=== PATIENT | female | born 1990 | race Caucasian/White ===

== ENCOUNTER 2016-07-06 09:24 | Emergency (ER) | payer OTHER, MEDICAID ==
[~2016-07-06] VITALS: Ht 152.4 cm; Wt 49.0 kg
[2016-07-06 10:30] LABS: BASOPHIL % 0.2 % (0-2); PLATELET COUNT 217 x10^3mcL (130-400); RED CELL DISTRIBUTION WIDTH 12.2 % (11.5-14.5)
[2016-07-06 10:41] LABS: CALCIUM 8.5 mg/dL (8.5-10.1); CARBON DIOXIDE 26.6 mmol/L (21-32); CHLORIDE SERUM 104 mmol/L (98-107); CREATININE SERUM 0.7 mg/dL (0.6-1.0); GFR1 > 60 mL/min; GLUCOSE SERUM 89 mg/dL (74-106); POTASSIUM SERUM 3.5 mmol/L (3.5-5.1); SODIUM SERUM 141 mmol/L (136-145)
[2016-07-06 10:45] LABS: ALBUMIN 3.8 g/dL (3.4-5.0); ALKALINE PHOSPHATASE 57 U/L (46-116); ALT/SGPT 16 U/L (14-59); AMYLASE 84 U/L (25-115); AST/SGOT 10 U/L (15-37); BILIRUBIN TOTAL 0.7 mg/dL (0.20-1.00); LIPASE 375 IU/L (73-393); TOTAL PROTEIN, SERUM 7.2 g/dL (6.4-8.2)
[2016-07-06 12:56] VITALS: BP 130/76
== END 2016-07-06 12:56 | disposition home or self-care (01) ==
LOC: ED 09:24
PROVIDERS: Emergency Medicine
DX: R10.9 Unspecified abdominal pain (principal); E86.0 Dehydration; R11.10 Vomiting, unspecified; R19.7 Diarrhea, unspecified; G43.909 Migraine, unspecified, not intractable, without status migrainosus
CPT/HCPCS: 83880; 87046; 87046-59; J2405; J3490; J7030

== ENCOUNTER 2017-07-31 16:05 | Emergency (ER) | payer OTHER ==
[~2017-07-31] VITALS: Ht 152.4 cm; Wt 50.5 kg
[2017-07-31 16:19] VITALS: BP 113/63; Ht 152.4 cm; Wt 50.5 kg
== END 2017-07-31 18:37 | disposition home or self-care (01) ==
LOC: ED 16:05
DX: G43.909 Migraine, unspecified, not intractable, without status migrainosus (principal)
CPT/HCPCS: J0780; J1885; Q0163

== ENCOUNTER 2017-12-26 21:28 | Emergency (ER) | payer OTHER ==
[~2017-12-26] VITALS: Ht 152.4 cm; Wt 52.2 kg
[2017-12-26 21:57] VITALS: Ht 152.4 cm; Wt 52.2 kg
[2017-12-26 23:24] VITALS: BP 122/76
== END 2017-12-26 23:24 | disposition home or self-care (01) ==
LOC: ED 21:28
DX: J03.90 Acute tonsillitis, unspecified (principal); G43.909 Migraine, unspecified, not intractable, without status migrainosus
CPT/HCPCS: J0696

== ENCOUNTER 2018-05-01 17:37 | Emergency (ER) | payer OTHER ==
[~2018-05-01] VITALS: Ht 152.4 cm; Wt 52.6 kg
[2018-05-01 17:56] VITALS: Ht 152.4 cm; Wt 52.6 kg
[2018-05-01 18:47] VITALS: BP 110/70
== END 2018-05-01 18:47 | disposition home or self-care (01) ==
LOC: ED 17:37
DX: L03.811 Cellulitis of head [any part, except face] (principal); G43.909 Migraine, unspecified, not intractable, without status migrainosus
CPT/HCPCS: J1885